=== PATIENT | male | born 1945 | race Hispanic/Latino ===

== ENCOUNTER 2018-03-15 11:52 | Emergency (ER) | payer MEDICARE ==
[2018-03-15] MEDS ORDERED: NACL 0.9% 1000 ML 1,000 ML IV ONE (14:32)
[2018-03-15] MEDS ORDERED: ZOFRAN IV ONE (14:34)
[2018-03-15] MEDS ORDERED: SUBLIMAZE IV ONE (14:37)
--- NOTE | 2018-03-15 14:47 | Emergency Department Report ---
Chief Complaint: Fall Stated Complaint: BACK INJURY/PAIN Time Seen by Provider: 03/15/18 14:03 - HPI History of Present Illness: The patient is a 72-year-old male with a history of low back surgery, who presents for evaluation of a number of complaints. The patient's primary complaint is bilateral hip pain and back pain after fall 4 days ago. He states that he tripped while outside and landed on his bottom, injuring his bilateral hips and lower back. He states that his pain has been moderate to severe since the injury, sharp in quality, and exacerbated with bending forward or lying flat. He has a secondary complaint of nausea without vomiting for the same duration, and decreased appetite. He submits that he feels dehydrated, but denies belly pain or diarrhea. The patient denies trauma to the abdomen, fall, fever, chills , headache, chest pain, dyspnea, dysuria, hematuria, paresthesias, numbness or tingling in the legs, leg weakness, or other focal neurological deficits. - Exam Vital Signs: Vital Signs 03/15/18 03/15/18 12:05 14:37 Temperature 98.2 F Pulse Rate 111 H 99 H Respiratory 18 20 Rate Blood Pressure 103/73 Blood Pressure 135/75 [Right] O2 Sat by Pulse 95 96 Oximetry MSE screening note: Focused history and physical exam performed. Due to findings the following was ordered: ED Medical Decision Making - Medical Decision Making The patient was seen and examined by myself. The patient is placed on a vehicle monitor technician and continuous pulse ox. On initial evaluation, the patient was found to be in no distress, although with tachycardia, heart rate 111, and low normal oxygen saturation of 95%. Although the patient presented with a complaint of back pain, as the patient is found to have abnormal vital signs and has experienced nausea and decreased appetite, comprehensive workup will be performed as the patient is elderly and could be experiencing nonrevealing sepsis or organ injury. ED Disposition for MSE Condition: Stable
[2018-03-15 15:01] LABS: Basophils % (Auto) 0.2 % (0.0-1.8); Eosinophils % (Auto) 0.4 % (0.0-4.3); Hematocrit 45.8 % (35.5-45.6); Hemoglobin 15.7 gm/dl (11.8-15.2); Lymphocytes # (Auto) 1.2 K/mm3 (1.2-5.4); Lymphocytes % (Auto) 13.4 % (13.4-35.0); Mean Corpuscular HGB Conc 34 % (32-34); Mean Corpuscular Hemoglobin 32 pg (28-32); Mean Corpuscular Volume 94 fl (84-94); Monocytes # (Auto) 0.7 K/mm3 (0.0-0.8); Monocytes % (Auto) 7.6 % (0.0-7.3); Platelet Count 233 K/mm3 (140-440); Red Blood Count 4.85 M/mm3 (3.65-5.03); Red Cell Distribution Width 13.4 % (13.2-15.2)
[2018-03-15 15:33] LABS: Lipase 40 units/L (13-60)
--- NOTE | 2018-03-15 15:33 | XRay Report ---
BILATERAL HIPS WITH PELVIS, 3 VIEWS: History: Pain. Findings: Bone mineralization is within normal limits. There is no evidence for fracture, dislocation or pelvic diastasis. No advanced joint pathology is detected. The soft tissues are unremarkable. Impression: Unremarkable exam.
[2018-03-15 15:38] LABS: Albumin 4.3 g/dL (3.9-5); Calcium 9.6 mg/dL (8.4-10.2)
--- NOTE | 2018-03-15 15:49 | Cat Scan Report ---
FINAL REPORT EXAM: CT THORACIC SPINE WO CON HISTORY: low back pain, s/p fall TECHNIQUE: Spiral CT scanning of the thoracic spine with multiplanar reformations. PRIORS: None. FINDINGS: Diffuse osteopenia. Mild, multilevel degenerative disc disease and spondylosis. No acute compression deformity or gross malalignment of thoracic vertebral bodies. No acute fracture identified. No acute, osseous central spinal canal encroachment. Paraspinal soft tissues grossly unremarkable. IMPRESSION: 1. No acute compression deformity or apparent fracture in the thoracic spine. 2. Mild degenerative spondylosis.
--- NOTE | 2018-03-15 15:55 | Cat Scan Report ---
FINAL REPORT EXAM: CT PELVIS WO CON HISTORY: bilateral hip pain TECHNIQUE: Spiral CT scanning of the pelvis. No oral or IV contrast administered. Multiplanar reformations. PRIORS: None. FINDINGS: Diffuse osteopenia and degenerative change. No acute fracture or dislocation. Soft tissues grossly unremarkable. Visualized bowel grossly unremarkable, with mild diverticular change in the sigmoid colon. Nonspecific prostatic enlargement. No significant free peritoneal fluid. Small, fat-containing left inguinal hernia. IMPRESSION: 1. No acute osseous abnormality.
--- NOTE | 2018-03-15 16:02 | Cat Scan Report ---
FINAL REPORT EXAM: CT LUMBAR SPINE WO CON HISTORY: low back pain, s/p fall 4 days ago TECHNIQUE: Spiral CT scanning of the lumbar spine, with axial and multiplanar reformations. PRIORS: None. FINDINGS: Diffuse osteopenia. Acute compression fracture deformity in the L1 superior endplate, with mild concavity and loss of height, but no significant retropulsion. Multilevel degenerative disc disease and spondylosis. Very mild anterolisthesis in the L3-4 level. Degenerative change also in the bilateral SI joints. No other acute compression deformity or gross malalignment of lumbar vertebral bodies. No other acute fracture identified. No acute, osseous central spinal canal encroachment. Paraspinal soft tissues grossly unremarkable. IMPRESSION: 1. Mild, acute compression fracture deformity in the L1 superior endplate. 2. Degenerative spondylosis.
[2018-03-15 16:11] VITALS: BP 136/64
[2018-03-15] MEDS ORDERED: PERCOCET 5/325 PO ONE (16:43)
[2018-03-15] MEDS ORDERED: PERCOCET 5/325 ONE (16:43)
--- NOTE | 2018-03-15 17:18 | Emergency Department Report ---
ED General Adult HPI - General Chief complaint: Fall Stated complaint: BACK INJURY/PAIN Time Seen by Provider: 03/15/18 14:03 Source: patient Mode of arrival: Wheelchair Limitations: No Limitations - History of Present Illness Initial comments: Patient is a 72-year-old male who fell 4 days ago. Persistent this was a ground-level fall. Patient states he slipped on wet ground and fell backwards. Patient did not his head there is no loss of consciousness. Patient states he has bilateral hip pain and lower back pain after fall. This pain is a 10 out of 10 in severity is persisted since the fall. Patient also states that he has been nauseous last several days as well. Patient states she has a dry mouth and feels like he may be dehydrated. Severity scale (0 -10): 9 - Related Data Previous Rx's Medication Instructions Recorded Last Taken Type Ketorolac [Toradol] 10 mg PO Q6H PRN #12 tablet 03/15/18 Unknown Rx Ondansetron [Zofran Odt] 4 mg PO Q8HR PRN #10 tab.rapdis 03/15/18 Unknown Rx Oxycodone HCl/Acetaminophen 1 each PO Q6HR PRN #12 tablet 03/15/18 Unknown Rx [Percocet 7.5/325 mg] Allergies Allergy/AdvReac Type Severity Reaction Status Date / Time codeine Allergy Unknown Verified 03/15/18 12:11 ED Review of Systems ROS: Stated complaint: BACK INJURY/PAIN Other details as noted in HPI Comment: All other systems reviewed and negative ED Past Medical Hx - Past Medical History Hx Hypertension: Yes Hx Psychiatric Treatment: Yes (anxiety,depression) Additional medical history: elevated cholesterol, chronic back pain - Surgical History Additional Surgical History: lumbar/sacral - Social History Smoking Status: Former Smoker Substance Use Type: Alcohol - Medications Home Medications: Home Medications Medication Instructions Recorded Confirmed Last Taken Type Ketorolac [Toradol] 10 mg PO Q6H PRN #12 tablet 03/15/18 Unknown Rx Ondansetron [Zofran Odt] 4 mg PO Q8HR PRN #10 tab.rapdis 03/15/18 Unknown Rx Oxycodone HCl/Acetaminophen 1 each PO Q6HR PRN #12 tablet 03/15/18 Unknown Rx [Percocet 7.5/325 mg] ED Physical Exam - General Limitations: No Limitations General appearance: alert, in no apparent distress - Head Head exam: Present: atraumatic, normocephalic - Eye Eye exam: Present: normal appearance - ENT ENT exam: Present: mucous membranes moist - Neck Neck exam: Present: normal inspection - Respiratory Respiratory exam: Present: normal lung sounds bilaterally. Absent: respiratory distress - Cardiovascular Cardiovascular Exam: Present: regular rate, normal rhythm. Absent: systolic murmur, diastolic murmur, rubs, gallop - GI/Abdominal GI/Abdominal exam: Present: soft, normal bowel sounds - Rectal Rectal exam: Present: deferred - Extremities Exam Extremities exam: Present: normal inspection - Back Exam Back exam: Present: normal inspection, other (lower back pain) - Neurological Exam Neurological exam: Present: alert, oriented X3 - Psychiatric Psychiatric exam: Present: normal affect, normal mood - Skin Skin exam: Present: warm, dry, intact, normal color. Absent: rash ED Course Vital Signs 03/15/18 03/15/18 03/15/18 12:05 14:37 16:10 Temperature 98.2 F 98.2 F Pulse Rate 111 H 99 H 95 H Respiratory 18 20 18 Rate Blood Pressure 103/73 Blood Pressure 135/75 136/64 [Right] O2 Sat by Pulse 95 96 92 Oximetry ED Medical Decision Making - Lab Data Result diagrams: 03/15/18 14:44 03/15/18 14:44 - Radiology Data X-ray of the bilateral hips C-spine and T-spine films and CT of the pelvis are all negative for any acute findings. All 3 of those found show degenerative joint joint disease. A CT of the L-spine there is a mild L1 compression fracture present Critical care attestation.: If time is entered above; I have spent that time in minutes in the direct care of this critically ill patient, excluding procedure time. ED Disposition Clinical Impression: Compression fracture Disposition: DC-01 TO HOME OR SELFCARE Is pt being admited?: No Does the pt Need Aspirin: No Condition: Stable Instructions: Vertebral Compression Fracture (ED) Additional Instructions: Please contact your orthopedic surgeon. U have a compression fracture of the first lumbar vertebrae. Please have your orthopedic surgeon arrange for possible kyphoplasty Prescriptions: Ketorolac [Toradol] 10 mg PO Q6H PRN #12 tablet PRN Reason: Pain Ondansetron [Zofran Odt] 4 mg PO Q8HR PRN #10 tab.rapdis PRN Reason: Nausea Oxycodone HCl/Acetaminophen [Percocet 7.5/325 mg] 1 each PO Q6HR PRN #12 tablet PRN Reason: Pain Referrals: MELVIN PENNINGTON [Other] - 3-5 Days
== END 2018-03-15 17:52 | disposition home or self-care (01) ==
LOC: ED 11:52
DX: S32.010A Wedge compression fracture of first lumbar vertebra, initial encounter for closed fracture (principal); I10 Essential (primary) hypertension; F41.9 Anxiety disorder, unspecified; F32.9 Major depressive disorder, single episode, unspecified; G89.29 Other chronic pain; Z87.891 Personal history of nicotine dependence; Z88.5 Allergy status to narcotic agent; W18.30XA Fall on same level, unspecified, initial encounter; Y93.89 Activity, other specified; Y99.8 Other external cause status; Y92.89 Other specified places as the place of occurrence of the external cause
CPT/HCPCS: 36415; 72128; 72131; 72192; 73521; 80053; 83690; 83880; 84484; 85025; 96361; 96374; 96375; 99285; J2405; J3010; J7030